=== PATIENT | male | born 1995 | race Caucasian/White ===

== ENCOUNTER → 2018-01-30 16:16 | Outpatient (CLI) | payer OTHER, SELFPAY ==
[2018-01-30 17:08] LABS: Thyroid Stim Hormone (TSH) 0.42 uIU/mL (0.358-3.74)
== END ==
PROVIDERS: Family Provider Pediatrics; PCP Pediatrics; Referring Provider Nurse Practitioner; Visit Provider Nurse Practitioner
DX: E03.9 Hypothyroidism, unspecified (principal)
CPT/HCPCS: 84443

== ENCOUNTER → 2018-08-02 22:41 | Outpatient (CLI) | payer OTHER, SELFPAY ==
[2018-08-02 18:46] VITALS: BMI 22.7
[2018-08-02 23:07] LABS: Thyroid Stim Hormone (TSH) 0.24 uIU/mL (0.358-3.74)
[2018-08-05 14:19] LABS: ANTINUCLEAR ANTIBODIES DIRECT Negative (Negative)
== END ==
PROVIDERS: Family Provider Pediatrics; PCP Pediatrics; Referring Provider Nurse Practitioner; Visit Provider Nurse Practitioner
DX: E03.9 Hypothyroidism, unspecified (principal); M25.50 Pain in unspecified joint; M25.561 Pain in right knee; M25.562 Pain in left knee; M25.9 Joint disorder, unspecified
CPT/HCPCS: 84443; 86038; 86225; 86235; 86431

== ENCOUNTER → 2018-10-04 09:50 | Outpatient (CLI) | payer OTHER, SELFPAY ==
[2018-09-02 20:27] VITALS: BMI 23.1
[2018-10-04 12:45] LABS: Erythrocyte Sedimentation Rate 1 mm/hr (0-15)
[2018-10-04 12:47] LABS: Absolute Lymphocyte Count 2.76 X10^3/ul (0.83-4.51); Absolute Neutrophil Count 5.8 X10^3/uL (2.0-7.7); Basophil# 0.04 X10^3/uL; Basophil% 0.4 % (0-1); Eosinophil# 0.12 X10^3/uL; Eosinophils% 1.2 % (0-5); Hemoglobin 14.9 g/dl (13.0-16.5); Lymphocyte # 2.76 X10^3/ul (4.0); Mean Corp Hgb Conc 33.9 g/gl (32-36); Mean Corpuscular Hgb 31.4 pg (27.0-32.0); Mean Corpuscular Volume 92.8 fL (80-94); Mean Platelet Vol. 10.4 fl (6.2-12.0); Monocyte# 1.06 X10^3/uL; Monocyte% 10.8 % (0-10); Neutrophil % 58.8 % (47-70); Platelet Count 295 K/mm3 (150-450); RBC Distribution Width CV 12.8 % (11.6-14.6); RBC Distribution Width SD 43.2 fl (35.1-43.9); Red Blood Count 4.74 M/mm3 (4.6-6.2); White Blood Count 9.9 K/mm3 (4.4-11.0)
[2018-10-04 12:49] LABS: POSITIVE COUNT NO; POSITIVE DIFFERENTIAL NO; POSITIVE MORPHOLOGY NO
[2018-10-04 12:59] LABS: ALB/GLOB Ratio 1.3 RATIO (0.9-2.4); AST(SGOT) 15 U/L (15-37); Alanine Aminotransfer ALT/SGPT 21 U/L (16-61); Albumin, Serum 4.2 g/dL (3.2-5.0); Alkaline Phosphatase 76 U/L (45-117); Anion Gap 8 (5-15); BUN 15 mg/dL (7-18); CRP < 2.90 mg/L (0.0-3.0); Chloride 105 mmol/L (98-107); Creatinine, Serum 0.75 mg/dL (0.70-1.30); EST Glomerular Filtration Rate 138 mL/min (>60); Est Glom Filt Rate - Afr Amer 167 mL/min (>60); Globulin 3.2 g/dL (2.2-4.2); Glucose 108 mg/dL (74-106); Potassium 3.7 mmol/L (3.5-5.1); Protein, Total 7.4 g/dL (6.4-8.2); Sodium Level 142 mmol/L (136-145)
[2018-10-04 13:35] LABS: Hepatitis B Surface Antibody Non-Reactive; Hepatitis B Surface Antigen Non-Reactive (Nonreactive); Hepatitis C Antibody Non-Reactive (Nonreactive)
[2018-10-06 11:04] LABS: CCP IgG Antibodies 6 units (0-19); Hepatitis B Core Ab Total Negative (Negative)
== END ==
LOC: MTLAB 09:57
PROVIDERS: Family Provider Nurse Practitioner; PCP Nurse Practitioner; Referring Provider Internal Medicine Rheumatology; Visit Provider Internal Medicine Rheumatology
DX: M05.79 Rheumatoid arthritis with rheumatoid factor of multiple sites without organ or systems involvement (principal); M79.7 Fibromyalgia; M35.7 Hypermobility syndrome; M21.40 Flat foot [pes planus] (acquired), unspecified foot; F43.12 Post-traumatic stress disorder, chronic; E03.9 Hypothyroidism, unspecified; R51 Headache
CPT/HCPCS: 36415; 80053; 85025; 85652; 86140; 86200; 86431; 86704; 86706; 86803; 87340

== ENCOUNTER → 2019-04-08 21:15 | Outpatient (CLI) | payer OTHER, SELFPAY ==
[2019-04-08 17:33] VITALS: BMI 23.1
[2019-04-08 21:41] LABS: Thyroid Stim Hormone (TSH) 0.94 uIU/mL (0.358-3.74)
== END ==
PROVIDERS: PCP Nurse Practitioner; Visit Provider Nurse Practitioner
DX: E03.9 Hypothyroidism, unspecified (principal)
CPT/HCPCS: 84443

== ENCOUNTER → 2020-09-19 | Outpatient (CLI) | payer OTHER, SELFPAY ==
[2020-09-19 06:20] VITALS: BMI 23.1
== END | disposition home or self-care (01) ==
LOC: LABSPEC 10:44
PROVIDERS: PCP Nurse Practitioner; Referring Provider Physician Assistant; Visit Provider Physician Assistant
DX: J02.9 Acute pharyngitis, unspecified (principal)
CPT/HCPCS: 87081

== ENCOUNTER → 2022-11-11 | Outpatient (CLI) | payer OTHER, SELFPAY ==
[2022-11-11 23:41] LABS: Absolute Neutrophil Count 3.8 X10^3/uL (2.0-7.7); Basophil# 0.07 X10^3/uL; Eosinophil# 0.25 X10^3/uL; Eosinophils% 3.7 % (0-5); Hematocrit 43.4 % (40-54); Hemoglobin 14.5 g/dL (13.0-16.5); Lymphocyte % 25.3 % (19-41); Mean Corp Hgb Conc 33.4 g/dL (32-36); Mean Corpuscular Hgb 29.7 pg (27.0-32.0); Mean Corpuscular Volume 88.9 fL (80-94); Mean Platelet Vol. 10.8 fl (6.2-12.0); Monocyte# 0.84 X10^3/uL; Monocyte% 12.5 % (0-10); NRBC Flagged by Analyzer 0 % (0-5); Neutrophil # 3.83 X10^3/uL (2.7-7.7); Neutrophil % 57.2 % (47-70); Platelet Count 316 K/mm3 (150-450); RBC Distribution Width CV 12.1 % (11.6-14.6); RBC Distribution Width SD 39.4 fl (35.1-43.9); Red Blood Count 4.88 M/mm3 (4.6-6.2); White Blood Count 6.7 K/mm3 (4.4-11.0)
[2022-11-11 23:55] LABS: AST(SGOT) 19 U/L (15-37); Alanine Aminotransfer ALT/SGPT 22 U/L (16-61); Albumin, Serum 4.1 g/dL (3.2-5.0); Alkaline Phosphatase 121 U/L (45-117); Anion Gap 5 (5-15); BUN 14 mg/dL (7-18); BUN/Creat Ratio 17.8 RATIO (10-20); Calcium,Total 9.1 mg/dL (8.5-10.1); Chloride 102 mmol/L (98-107); Creatinine, Serum 0.78 mg/dL (0.70-1.30); EST Glomerular Filtration Rate 126 mL/min (>60); Est Glom Filt Rate - Afr Amer 153 mL/min (>60); Glucose 93 mg/dL (74-106); PSA,Total - Annual Screen 0.18 ng/mL (0.00-4.00); Potassium 3.9 mmol/L (3.5-5.1); Protein, Total 8.1 g/dL (6.4-8.2); Sodium Level 137 mmol/L (136-145); Thyroid Stim Hormone (TSH) 7.51 uIU/mL (0.358-3.74)
== END | disposition home or self-care (01) ==
PROVIDERS: PCP Nurse Practitioner; Visit Provider Nurse Practitioner
DX: F43.10 Post-traumatic stress disorder, unspecified (principal); E03.9 Hypothyroidism, unspecified; R79.89 Other specified abnormal findings of blood chemistry
CPT/HCPCS: 80053; 84153; 84403; 84443; 85025; G0103

== ENCOUNTER → 2022-12-09 | Outpatient (CLI) | payer OTHER, SELFPAY ==
[2022-12-09 21:15] LABS: Thyroid Stim Hormone (TSH) 4.13 uIU/mL (0.358-3.74)
== END | disposition home or self-care (01) ==
PROVIDERS: PCP Nurse Practitioner; Visit Provider Nurse Practitioner
DX: E03.9 Hypothyroidism, unspecified (principal); R79.89 Other specified abnormal findings of blood chemistry
CPT/HCPCS: 84403; 84443

== ENCOUNTER → 2023-02-06 | Outpatient (CLI) | payer OTHER, SELFPAY | END | disposition home or self-care (01) | PROVIDERS: PCP Nurse Practitioner; Referring Provider Nurse Practitioner; Visit Provider Nurse Practitioner | DX: E03.9 Hypothyroidism, unspecified (principal) | CPT/HCPCS: 84443 ==

== ENCOUNTER → 2023-03-31 | Outpatient (CLI) | payer OTHER, SELFPAY ==
--- OUTSIDE RECORDS SUMMARY | 2023-03-31 21:21 | XMS RPT_ITS | CCD ---
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 Role Phone SUNIL VIDAL Primary Care Physici an Allergies Allergy Classification Reported Allergen(s) Allergy Type Date of Onset Reaction(s) Facility (1 source) Amoxicillin; Translations: [amoxicillin] Drug Allergy [facility] Problems Problem Classification Problem Date Documented Da te Episodic/Chronic Headache; including migraine (1 source) Migraine; Translations: [Migraine, unspecified, not intractable, without status migrainosus] Onset: 01-05-2021 Chronic Vital Signs Date Time Vital Sign Value Performing Clinician Faci lity 01-05-2021 12:52-0400 Body temperature 98.42 [degF] DR LANCE CONDON MD [facility] 01-05-2021 12:52-0400 Diastolic blood pressure 91 mm[Hg] DR LANCE CONDON MD [facility] 01-05-2021 12:52-0400 Heart rate 74 /min DR LANCE CONDON MD [facility] 01-05-2021 12:52-0400 Respiratory rate 18 /min DR LANCE CONDON MD [facility] 01-05-2021 12:52-0400 Systolic blood pressure 135 mm[Hg] DR LANCE CONDON MD [facility] Encounters Encounter Date Encounter Type Care Provider Facility Start: 01-05-2021 End: 01-05-2021 Emergency department patient visit DR LANCE CONDON MD [facility] Procedures Date Procedure Procedure Detail Performing Clinician None (qualifier value) DR ARCHIE CONDON MD Social History Date Type Detail Facility [facility] Sex Assigned At Male [facility] Hospital Discharge instructions 01-05-2021 Note Date & Type Note Facility 01-05-2021 Hospital Discharg e instructions Patient Education 01/05/2021 15:20:42 Headache, Migraine, Classic Migraine Headache This often severe type of headache is different from other types of headaches in that symptoms other than pain occur with the headache. Nausea and vomiting, lightheadedness, sensitivity to light (photophobia), and other visual disturbances are common migraine symptoms. The pain may last from a few hours to several days. It is not clear why migraines occur but certain factors called triggers can raise the risk of having a migraine attack. A migraine may be triggered by emotional stress or depression, or by hormone changes during the menstrual cycle. Other triggers include control pills, overuse of migraine medicines, alcohol or caffeine, foods with tyramine (such as aged cheese and wine), eyestrain, weather changes, missed meals, or too little or too much sleep. Home care Follow these tips when taking care of yourself at home: Don t drive yourself home if you were given pain medicine for your headache or are having visual symptoms. Instead, have someone else drive you home. Try to sleep when you get home. You should feel much better when you wake up. Cold can help ease migraine symptoms. Put an ice pack on your forehead or at the base of your skull. Put heat on the back of your neck to help ease any neck spasm. Drink only clear liquids or eat a light diet until your symptoms get better. This will help you avoid nausea and vomiting. How to prevent migraines Pay attention to what seems to trigger your headache. Try to avoid the triggers when you can. If you have frequent headaches, consider keeping a headache diary. In it, write down what you were doing, feeling, or eating in the hours before each headache. Show this to your healthcare provider to help find the cause of your headaches. If stress seems to be a trigger for your headaches, figure out what is causing stress in your life. Learn new ways to handle your stress. Ideas include regular exercise, biofeedback, self-hypnosis, yoga, and meditation. Talk with your healthcare provider to find out more information about managing stress. Many books and digital media are also available on this subject. Tyramine is a substance found in many foods. It can trigger a migraine in some people. These foods contain tyramine: Chocolate Yogurt All cheeses, but especially aged cheeses Smoked or pickled fish and meat, including bellamy, caviar, bologna, pepperoni, and salami Liver Avocados Bananas Figs Raisins Red wine Try staying away from these foods for 1 to 2 months to see if you have fewer headaches. How to treat future headaches Take time out at the first sign of a headache, if possible. Find a quiet, dark, comfortable place to sit or lie down. Let yourself relax or sleep. Put an ice pack on your forehead or on the area of greatest pain. A heating pad and massage may help if you are having a muscle spasm and tightness in your neck. If you have been prescribed a medicine to stop a migraine headache, use this at the first warning sign of the headache for best results. First signs may be an aura or pain. If you need to take medicine often for your migraine, talk with your healthcare provider about other ways to prevent your headaches. Follow-up care Follow up with your healthcare provider, or as advised. Talk with your provider if you have frequent headaches. He or she can figure out a treatment plan. Ask if you can have medicine to take at home the next time you get a bad headache. This may keep you from having to visit the emergency department in the future. You may need to see a headache specialist (neurologist) if you continue to have headaches. When to seek medical advice Call your healthcare provider right away if any of these occur: Your head pain gets worse, or doesn t get better within 24 hours You can t keep liquids down (repeated vomiting) Pain in your sinuses, ears, or throat Fever of 100.4 F (38 C) or higher, or as directed by your healthcare provider Stiff neck Extreme drowsiness, confusion, or fainting Dizziness, or dizziness with spinning sensation (vertigo) Weakness in an arm or leg, or on one side of your face Difficulty talking or seeing [id number] [employer]. [address] [place] [address]. All rights reserved. This information is not intended as a substitute for professional medical care. Always follow your healthcare professional's instructions. Follow Up Care 01/05/2021 12:13:44 With:SUNIL LUNA Address: [address] [place] [address]- Business (1) When:2-4 days Comments:Return to ED if symptoms worsen [facility] Evaluation + Plan note Note Date & Type Note Facility Evaluation + Plan note No data available for this section [facility] Additional Source Comments FOR RECORDS PERTAINING TO PATIENTS WHO ARE OR HAVE BEEN ENROLLED IN A CHEMICAL DEPENDENCY/SUBSTANCEABUSE PROGRAM, SOME INFORMATION MAY BE OMITTED. This clinical summary was aggregated from multiple sources. Caution should be exercised in using it in the provision of clinical care. This summary normalizes information from multiple sources, and as a consequence, information in this document may materially change the coding, format and clinical context of patient data. In addition, data may be omitted in some cases. CLINICAL DECISIONS SHOULD BE BASED ON THE PRIMARY CLINICAL RECORDS. [employer]. provides no warranty or guarantee of the accuracy or completeness of information in this document.
== END | disposition home or self-care (01) ==
PROVIDERS: PCP Nurse Practitioner; Visit Provider Nurse Practitioner
DX: R79.89 Other specified abnormal findings of blood chemistry (principal)

== ENCOUNTER → 2023-04-13 | Outpatient (CLI) | payer OTHER, SELFPAY ==
--- OUTSIDE RECORDS SUMMARY | 2023-04-13 15:33 | XMS RPT_ITS | CCD ---
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 Role Phone SUNIL VIDAL Primary Care Physici an Allergies Allergy Classification Reported Allergen(s) Allergy Type Date of Onset Reaction(s) Facility (1 source) Amoxicillin; Translations: [amoxicillin] Drug Allergy [facility] Problems Problem Classification Problem Date Documented Da te Episodic/Chronic Headache; including migraine (1 source) Migraine; Translations: [Migraine, unspecified, not intractable, without status migrainosus] Onset: 01-05-2021 Chronic Vital Signs Date Time Vital Sign Value Performing Clinician Faci lity 01-05-2021 12:52-0400 Body temperature 98.42 [degF] DR LANCE CONDON MD [facility] 01-05-2021 12:52-0400 Diastolic blood pressure 91 mm[Hg] DR LANCE CONDON MD [facility] 01-05-2021 12:52-0400 Heart rate 74 /min DR LANCE CONDON MD [facility] 01-05-2021 12:52-0400 Respiratory rate 18 /min DR LANCE CONDON MD [facility] 01-05-2021 12:52-0400 Systolic blood pressure 135 mm[Hg] DR LANCE CONDON MD [facility] Encounters Encounter Date Encounter Type Care Provider Facility Start: 01-05-2021 End: 01-05-2021 Emergency department patient visit DR LANCE CONDON MD [facility] Procedures Date Procedure Procedure Detail Performing Clinician None (qualifier value) DR ARCHIE CONDON MD Social History Date Type Detail Facility [facility] Sex Assigned At Male [facility] Discharge instructions 01-05-2021 Note Date & [...] of your face Difficulty talking or seeing [id number] [employer]. [address] [place] [id number]. All rights reserved. This information is not intended as a substitute for professional medical care. Always follow your healthcare professional's instructions. Follow Up Care 01/05/2021 12:13:44 With:SUNIL LUNA Address: [address] [place] [address]- Business (1) When:2-4 days Comments:Return to ED if symptoms worsen [facility] Evaluation + Plan note Note Date & Type Note Facility Evaluation + Plan note No data available for this section [facility] Additional Source Comments FOR RECORDS PERTAINING [...] BE BASED ON THE PRIMARY CLINICAL RECORDS. [employer]. provides no warranty or guarantee of the accuracy or completeness of information in this document.
== END | disposition home or self-care (01) ==
PROVIDERS: PCP Nurse Practitioner; Referring Provider Urology; Visit Provider Urology
DX: E29.1 Testicular hypofunction (principal)
CPT/HCPCS: 36415; 84403

== ENCOUNTER → 2023-04-27 | Outpatient (CLI) | payer OTHER, SELFPAY ==
--- OUTSIDE RECORDS SUMMARY | 2023-04-27 07:03 | XMS RPT_ITS | CCD ---
Author Name Unknown Address [address] [place] [address] Organization [facility] Care Team Providers Care Board Of Directors Name Role Phone SUNIL VIDAL Primary Care Physici an Allergies Allergy Classification Reported Allergen(s) Allergy Type Date of Onset Reaction(s) Facility (1 source) Amoxicillin; Translations: [amoxicillin] Drug Allergy [facility] Problems Problem Classification Problem Date Documented Da te Episodic/Chronic Headache; including migraine (1 source) Migraine; Translations: [Migraine, unspecified, not intractable, without status migrainosus] Onset: 01-05-2021 Chronic Vital Signs Date Time Vital Sign Value Performing Clinician Faci lity 01-05-2021 12:52-0400 Body temperature 98.42 [degF] DR LANCE CONDON MD [facility] 01-05-2021 12:52-0400 Diastolic blood pressure 91 mm[Hg] DR LANCE CONDON MD [facility] 01-05-2021 12:52-0400 Heart rate 74 /min DR LANCE CONDON MD [facility] 01-05-2021 12:52-0400 Respiratory rate 18 /min DR LANCE CONDON MD [facility] 01-05-2021 12:52-0400 Systolic blood pressure 135 mm[Hg] DR LANCE CONDON MD [facility] Encounters Encounter Date Encounter Type Care Provider Facility Start: 01-05-2021 End: 01-05-2021 Emergency department patient visit DR LANCE CONDON MD [facility] Procedures Date Procedure Procedure Detail Performing Clinician None (qualifier value) DR ARCHIE CONDON MD Social History Date Type Detail Facility [facility] Sex Assigned At Male [facility] Hospital Discharge instructions 01-05-2021 Note Date & [...] of your face Difficulty talking or seeing [id number] [employer]. [address] [place] [id number]. All rights reserved. This information is not intended as a substitute for professional medical care. Always follow your healthcare professional's instructions. Follow Up Care 01/05/2021 12:13:44 With:SUNIL LUNA Address: [address] [place] [address]- Business (1) When:2-4 days Comments:Return to ED if symptoms worsen [facility] Evaluation + Plan note Note Date & Type Note Facility Evaluation + Plan note No data available for this section [facility] Additional Source Comments FOR RECORDS PERTAINING TO [...] BE BASED ON THE PRIMARY CLINICAL RECORDS. [employer] provides no warranty or guarantee of the accuracy or completeness of information in this document.
== END | disposition home or self-care (01) ==
PROVIDERS: PCP Nurse Practitioner; Referring Provider Urology; Visit Provider Urology
DX: E29.1 Testicular hypofunction (principal)
CPT/HCPCS: 36415; 84403

== ENCOUNTER → 2024-03-08 | Outpatient (CLI) | payer OTHER, SELFPAY ==
[2024-03-08 21:41] LABS: ALB/GLOB Ratio 1.1 RATIO (0.9-2.4); AST(SGOT) 17 U/L (15-37); Alanine Aminotransfer ALT/SGPT 18 U/L (16-61); Albumin, Serum 4.5 g/dL (3.2-5.0); Alkaline Phosphatase 104 U/L (45-117); Anion Gap 8 (5-15); BUN 13 mg/dL (7-18); BUN/Creat Ratio 19.3 RATIO (10-20); Chloride 100 mmol/L (98-107); Creatinine, Serum 0.68 mg/dL (0.70-1.30); EST Glomerular Filtration Rate 149 mL/min (>60); Est Glom Filt Rate - Afr Amer 180 mL/min (>60); Glucose 71 mg/dL (74-106); Potassium 3.6 mmol/L (3.5-5.1); Protein, Total 8.5 g/dL (6.4-8.2); Sodium Level 133 mmol/L (136-145)
== END | disposition home or self-care (01) ==
PROVIDERS: PCP Nurse Practitioner; Referring Provider Nurse Practitioner; Visit Provider Nurse Practitioner
DX: E03.9 Hypothyroidism, unspecified (principal)
CPT/HCPCS: 80053; 84443

== ENCOUNTER 2024-03-12 11:54 | Emergency (ER) | payer OTHER, SELFPAY ==
[2024-03-12 11:55] VITALS: BP 145/91; PULSE 88; RESP 16; TEMP 36.6; O2SAT 95; BMI 31.0
--- NOTE | 2024-03-12 12:20 | EX.ED.UPPERE ---
HPI History of Present Illness Chief Complaint: Upper Extremity Injury Narrative Narrative: Patient is a 28-year-old male past medical history of opioid abuse, hypothyroidism, hypertension, migraines who presents to the emergency department chief complaint of right-sided neck pain. Patient states that on Thursday morning he noted some discomfort in the right side of his neck and notes that it has been progressively worsening throughout the week prompting him to come here for further evaluation management. Patient denies any recent contacts he states that he lives alone. Patient denies any history of IV drug use. Patient states that he does not smoke and states that he has occasional alcohol use. [facility] Medical History Hypothyroidism Acute pharyngitis, unspecified URI (upper respiratory infection) Normal colonoscopy Hypertension Migraine Home Medications ?Medication ?Instructions ?Recorded ?Last Taken ?Type levothyroxine 100 mcg tablet 100 mcg PO QDAY #90 tabs 02/09/23 Unknown Rx sumatriptan succinate 100 mg tablet See Rx Instructions PO .COMPLEX 03/08/24 Unknown Rx #10 tabs levothyroxine 100 mcg tablet 100 mcg PO QDAY #30 tabs 03/09/24 Unknown Rx cyclobenzaprine 5 mg tablet 5 mg PO TID PRN muscle spasm #20 03/12/24 Unknown Rx tabs Allergy/AdvReac Type Severity Reaction Status Date / Time amoxicillin Allergy Severe Anaphylaxis Verified 03/12/24 11:58 penicillin V Allergy Severe Anaphylaxis Verified 03/12/24 11:58 Family History Mother Multiple sclerosis Uncle Multiple sclerosis Other Arthritis Diabetes Hypertension Hypoglycemia Migraines, neuralgic Thyroid disorder Surgical History History of tonsillectomy Social History Smoking Status: Former smoker ROS ROS ED ROS Narrative Constitutional: Denies any fevers, chills, headaches, lightness, dizziness Eyes: Denies change in visual vision blurry vision Neck: Complains of neck discomfort as noted above Cardiovascular: Denies chest pain or palpitations Neurological: Denies any numbness, weakness, tingling Musculoskeletal: See neck Skin: Denies any rashes or lesions EXAM Physical Exam Narrative Exam Narrative: General: Patient lying in bed rest comfortably did not appear to be acute distress Head: Atraumatic, normocephalic Eyes: PERRL body, EOMI bilateral, no conjunctival injection noted Neck: No tenderness palpation the midline of the cervical spine, patient has tenderness to palpation over the right trapezius region no concern for meningitis Cardiovascular: Regular rate and rhythm no murmurs gallops rubs are noted Respiratory: Clear to auscultation bilaterally Abdomen: Soft, nondistended, nontender to palpation, bowel sounds present x 4 Musculoskeletal: No tenderness palpation in the midline of the thoracolumbar spine. Extremities: +5/5 strength noted in the bilateral upper and lower extremities, radial pulses +2/4 in the bilateral per extremities Neurological: Patient following commands knew that he was at [facility] years 2023. Sensation grossly intact in the median, ulnar and radial nerve distribution bilaterally Skin: Warm, dry, intact, no rashes or lesions noted Const Vital Signs: 03/12/24 11:55 Temperature 97.8 F Temperature Source Temporal Pulse Rate 88 Respiratory Rate 16 Blood Pressure 145/91 H Blood Pressure Mean 109 Pulse Ox 95 MDM MDM MDM Narrative Medical decision making narrative: Patient is a 28-year-old male who presents to the emergency department with chief complaint of right neck pain. Patient will be given Toradol and Norflex here. On the differential diagnose includes but not limited to musculoskeletal strain. He will be reevaluated. On reevaluation the patient he is feeling much improved and would like to go home at this point time. Patient given a prescription for muscle relaxers and he is advised to rotate Tylenol and ibuprofen [id number]. He is advised to continue to stretch his neck. He was encouraged to follow-up with his primary care physician outpatient setting and return with worsening symptoms or other concerns. All question concerns answered he is discharged home in stable condition. Discharge Plan Triage Chief Complaint: Upper Extremity Injury ED Provider: Vadim Winston Dx/Rx/DC Orders Clinical Impression: Neck pain Prescriptions: New cyclobenzaprine 5 mg tablet 5 mg PO TID PRN (Reason: muscle spasm) Qty: 20 0RF No Action sumatriptan succinate 100 mg tablet See Rx Instructions PO .COMPLEX Qty: 10 12RF Dose Instruction: take 1 tab at onset of headache; if no relief may repeat 1 tab in 2hr; max = 2 tabs/24 hrs PO Rx Instructions: take 1 tab at onset of headache; if no relief may repeat 1 tab in 2hr; max = 2 tabs/24 hrs PO levothyroxine 100 mcg tablet 100 mcg PO QDAY Qty: 30 2RF levothyroxine 100 mcg tablet 100 mcg PO QDAY Qty: 90 3RF Primary Care Provider: Debo Chavez NP Referrals: Debo Chavez NP, [facility] [Primary Care Provider] - Activity Restrictions/Additional Instructions: Rotate Tylenol and ibuprofen [id number] as we discussed here. Use your muscle relaxer as prescribed. Do not operate anything under the influence of this medication. Return with worsening symptoms or any other concerns. Continue to stretch your neck. Print Language: Romansh Disposition Disposition: Home, Self Care
[2024-03-12] MEDS: Ketorolac 30 MG/ML Syringe IM (12:24)
[2024-03-12] MEDS: Orphenadrine 60 MG/2 ML Ampul 30 MG IM (12:25)
[2024-03-12 14:10] VITALS: BP 130/84; PULSE 80; RESP 16; TEMP 36.6; O2SAT 98
== END 2024-03-12 14:12 | disposition home or self-care (01) ==
PROVIDERS: Emergency Provider Emergency Medicine; PCP Nurse Practitioner; Visit Provider Emergency Medicine
DX: M54.2 Cervicalgia (principal); Z87.891 Personal history of nicotine dependence
CPT/HCPCS: 96372; 99282

== ENCOUNTER → 2024-05-11 | Outpatient (CLI) | payer OTHER, SELFPAY | END | disposition home or self-care (01) | PROVIDERS: PCP Nurse Practitioner; Referring Provider Nurse Practitioner; Visit Provider Nurse Practitioner | DX: E03.9 Hypothyroidism, unspecified (principal) | CPT/HCPCS: 84443 ==